=== PATIENT | female | born 1960 | race Caucasian/White ===

== ENCOUNTER 2017-07-15 23:14 | Emergency (ER) | payer BC ==
[~2017-07-15] VITALS: Ht 170.2 cm; Wt 93.2 kg
[~2017-07-15 23:14] MED LIST: EFFSR75 PO; EXM/25 PO; MELA1TAB54 PO; MULT-884 PO
[2017-07-15 23:15] VITALS: TEMP 36.6; Ht 170.2 cm; Wt 93.2 kg
[2017-07-15] MEDS ORDERED: HYDROCODONE/ACETAMOPHEN 5/325MG TAB PO ONE (23:45)
[2017-07-16] MEDS ORDERED: HYDR-5688 PO (00:40)
[2017-07-16] MEDS ORDERED: NORCO 5/325MG HOME PACK PO ONE (00:45)
[2017-07-16 00:55] VITALS: BP 142/76; PULSE 89; O2SAT 95
[2017-07-16] MEDS ORDERED: PALB125C PO (02:11)
[2017-07-16] MEDS ORDERED: FULV250I2 IM (02:14)
--- NOTE | 2017-07-16 06:46 | DIAGNOSTIC IMAGING REPORT ---
R KNEE 3 VIEWS HISTORY: 57 years-old Female right knee injury acute right knee pain status post twisting injury. COMPARISON: None available TECHNIQUE: 3 views of the right knee FINDINGS: No acute fracture or dislocation identified. There is mild soft tissue swelling about the knee, greatest medially. Moderate joint effusion is noted. Tricompartmental osteoarthritis is present, mild within the medial and lateral compartments and mild to moderate within the patellofemoral joint. IMPRESSION: 1. Mild medial soft tissue swelling and moderate joint effusion are present without acute fracture or dislocation. 2. Tricompartmental osteoarthritis is most pronounced within the patellofemoral joint where there is mild to moderate disease. The above report was generated using voice recognition software. It may contain grammatical, syntax or spelling errors. Electronically signed by: Garland Koch M.D. 07/16/2017 6:45 AM Dictated Date/Time: 07/16/2017 6:43 AM
--- NOTE | 2017-07-16 21:48 | EMERGENCY ROOM VISIT NOTE ---
ED Visit Note First contact with patient: 23:23 CHIEF COMPLAINT: knee pain HISTORY OF PRESENT ILLNESS: This 57 year old female patient presents to the emergency department after sustaining an injury to the right knee earlier tonight. The patient was at the [employer] football game and twisted her knee. She did not fall or hit the ground. The patient denies any other injuries besides their knee. The patient is without swelling or bruising. There is pain medially. They rate the pain as dull and 6/10. The patient states they are able to walk on it. No numbness or tingling. No previous injuries to this knee. No ankle, foot or hip pain. REVIEW OF SYSTEMS: A 6 system review of systems was completed with positives and pertinent negatives listed in the HPI. ALLERGIES: No known allergies MEDICATIONS: See EMR PMH: See EMR SOCIAL HISTORY: Lives [place] PHYSICAL EXAM: Vital Signs: Reviewed Nurse's notes, vital signs stable. GENERAL : White female, no acute distress, but appears in pain, well-developed, well- nourished. MENTAL STATUS: Alert, oriented to person place and time, and cooperative. MUSCULOSKELETAL: The right knee is not swollen. There is no ecchymosis. There is no joint effusion present. The patient is tender medially. There is medial joint line tenderness. The patella does not subluxate. Range of motion is normal. Strength of the quads and hamstrings is 5/ 5. Serena's is negative. Jose's and Anterior Drawer tests are negative. There is no laxity with varus and valgus stressing. The foot and toes are warm and well-perfused. Dorsalis pedis pulse 2+. Sensation to pain and light touch is intact. Capillary refill less than 2 seconds. R KNEE 3 VIEWS HISTORY: 57 years-old Female right knee injury acute right knee pain status post twisting injury. COMPARISON: None available TECHNIQUE: 3 views of the right knee FINDINGS: No acute fracture or dislocation identified. There is mild soft tissue swelling about the knee, greatest medially. Moderate joint effusion is noted. Tricompartmental osteoarthritis is present, mild within the medial and lateral compartments and mild to moderate within the patellofemoral joint. IMPRESSION: 1. Mild medial soft tissue swelling and moderate joint effusion are present without acute fracture or dislocation. 2. Tricompartmental osteoarthritis is most pronounced within the patellofemoral joint where there is mild to moderate disease. EMERGENCY DEPARTMENT COURSE: Physical exam and history were performed. Nursing notes and EMR were reviewed. The patient does have pain of her right knee after injuring herself today. X-ray was obtained and does not show evidence of acute findings. The patient will be given a short course of Vicodin. She will be given a knee immobilizer. Evidently she has crutches from home that she may use. The patient is to follow with orthopedics for further care and management. She was otherwise invited back to the ER anytime. Current/Historical Medications Scheduled Fulvestrant (Faslodex), 5 ML IM MONTHLY Melatonin (Melatonin), 5 MG PO UD Multiple Vitamin (Multi Vitamin Daily), 1 TAB PO DAILY Palbociclib (Ibrance), 125 MG PO DAILY/UD Venlafaxine Hcl (Effexor Extended Rel), 225 MG PO DAILY Scheduled PRN Hydrocodone/Acetaminophen 5MG/325MG ([place] 5MG/325MG), 1 TABLET PO Q6 PRN for Pain Allergies Coded Allergies: No Known Allergies (Verified , 09/01/15) Vital Signs Date Time Temp Pulse Resp B/P (MAP) Pulse Ox O2 Delivery O2 Flow Rate FiO2 07/16/17 00:55 89 18 142/76 95 07/15/17 23:15 36.6 97 18 155/63 97 Room Air Medications Administered Medications (Trade) Dose Ordered Sig/Justen Route Start Time Stop Time Status Last Admin Dose Admin Acetaminophen/ Hydrocodone Bitart ([place] 5/325 Tab) 1 tab NOW ONCE PO 07/15/17 23:45 07/15/17 23:46 DC 07/16/17 00:07 1 TAB Acetaminophen/ Hydrocodone Bitart ([place] 5/325mg Home Pack) 1 homepack UD ONCE PO 07/16/17 00:45 07/16/17 00:46 DC 07/16/17 00:45 1 HOMEPACK Departure Information Impression Primary Impression: Injury of right knee Dispostion Home / Self-Care Condition GOOD Prescriptions Hydrocodone/Acetaminophen 5MG/325MG ([place] 5MG/325MG) Tab 1 TABLET PO Q6 Y for Pain, #12 TAB For Initial Treatment Prov: Kenny Finn PA-C 07/16/17 Referrals Leeroy Llanes D.ODonavon Forms HOME CARE DOCUMENTATION FORM, IMPORTANT VISIT INFORMATION Patient Instructions My [facility] Additional Instructions You were seen and evaluated today on an emergency basis only. This is not a substitute for, or an effort to provide, complete comprehensive medical care. It is not possible to recognize and treat all injuries or illnesses in a single emergency department visit. For this reason it is recommended that you followup with [facility] with any ongoing or persistent symptoms. For baseline pain relief you may alternate ibuprofen and acetaminophen every 4 hours for pain control. Take 600 mg ibuprofen (Advil) and then 4 hours later take 1000 mg acetaminophen (Tylenol). Do not take more than 3000 mg acetaminophen in a single day. [place] (hydrocodone/acetaminophen) 5/325 mg every 6 hours as needed for worsening breakthrough pain. Do not drink or drive on [place]. This medication will likely make you tired. Do not take [place] and Tylenol at the same time as both contain acetaminophen. [place] may cause constipation. You may wish to take an [id number] stool softener like Colace if this occurs. Wear your knee immobilizer and use your crutches for the next 4-5 days. Take every precaution to prevent falling. You are welcome to return to the emergency department anytime with new, worsening, or concerning symptoms.
== END 2017-07-16 01:11 | disposition home or self-care (01) ==
LOC: C.EDB 23:15 → C.EDA 07-16 01:11
DX: S89.91XA Unspecified injury of right lower leg, initial encounter (principal); Z79.899 Other long term (current) drug therapy; X50.9XXA Other and unspecified overexertion or strenuous movements or postures, initial encounter; Y92.39 Other specified sports and athletic area as the place of occurrence of the external cause

== ENCOUNTER → 2017-11-30 | Outpatient (CLI) | payer OTHER ==
[~2017-11-30] MED LIST changes: -EXM/25 PO; +FULV250I2 IM; +HYDR-5688 PO; +PALB125C PO
== END | disposition home or self-care (01) ==
LOC: C.MAMM 13:46
PROVIDERS: ATTEND Nurse Practitioner Family
DX: C50.919 Malignant neoplasm of unspecified site of unspecified female breast (principal)

== ENCOUNTER → 2018-01-19 | Outpatient (CLI) | payer OTHER ==
[~2018-01-19] MED LIST changes: +GADAVIST IV PRN; -HYDR-5688 PO
--- NOTE | 2018-01-19 09:40 | DIAGNOSTIC IMAGING REPORT ---
MRI OF THE BRAIN COMBO CLINICAL HISTORY: Breast cancer. Headache. COMPARISON STUDY: MRI of the brain dated 02/13/2007. TECHNIQUE: MRI of the brain was performed utilizing various T1 and T2-weighted sequences in the axial, sagittal, and coronal planes. Contrast-enhanced sequences were acquired following the administration of 9 cc of Gadavist. FINDINGS: Brain parenchyma: The brain parenchyma is normal in appearance. There is no hemorrhage or mass effect. A small developmental venous anomaly is incidentally noted in the posterior right parietal lobe. There is no restricted diffusion to suggest acute ischemia. No enhancing mass lesion is identified on the postcontrast images. Holman-white matter differentiation is preserved. No extra-axial fluid collection is seen. The cerebellar tonsils are normal in configuration. Ventricles, sulci, and cisterns: Normal in configuration. Pituitary and sella: Unremarkable. Intracranial vasculature: Normal flow voids are maintained at the skull base. Orbits: The bony orbits are grossly intact. Orbital contents are normal in appearance. Sinuses and mastoids: There is a small left mastoid effusion. The right mastoid air cells and the paranasal sinuses are clear. Calvarium: Unremarkable. Cervical cord: Partially visualized cervical spinal cord is normal in morphology and signal intensity. IMPRESSION: No acute intracranial abnormality. Electronically signed by: Jason Goode M.D. 01/19/2018 9:39 AM Dictated Date/Time: 01/19/2018 9:27 AM
== END | disposition home or self-care (01) ==
LOC: C.MRI 08:48
DX: G44.52 New daily persistent headache (NDPH) (principal); Z86.000 Personal history of in-situ neoplasm of breast